=== PATIENT | female | born 1990 | race Caucasian/White ===

== ENCOUNTER 2017-02-25 01:35 | Inpatient (IN) | payer BC ==
[2017-02-25] MEDS ORDERED: Sodium Chloride 0.9% 10 ML Syringe FLUSH PRN (08:15)
[2017-02-25] MEDS ORDERED: Oxytocin/Lactated Ringers 10 UNIT/1,000 ML BAG IV SCH (08:30)
[2017-02-25] MEDS: Lactated Ringers 1,000 ML IV SCH ×3 (08:47→14:58)
[2017-02-25] MEDS: Oxytocin/Lactated Ringers 10 UNIT/1,000 ML BAG IV SCH ×2 (08:48→22:34)
[2017-02-25] MEDS ORDERED: ePHEDrine 50 MG/ML SDV IVPUSH PRN (09:07)
[2017-02-25] MEDS ORDERED: Ondansetron 4 MG/2 ML SDV IVPUSH PRN (09:07)
[2017-02-25] MEDS ORDERED: fentaNYL 100 MCG/2 ML SDV EPIDUR PRN (09:07)
--- NOTE | 2017-02-25 09:14 | PCM.PREANE ---
Preanesthetic Assessment - Physical Assessment Respiratory Rate: 16 Vital Signs: Last Vital Signs Temp 36.4 C 02/25/17 08:15 Pulse 117 H 02/25/17 08:15 Resp 16 02/25/17 08:15 BP 114/72 02/25/17 08:15 Pulse Ox Height: 1.65 m Weight: 64.41 kg - Allergies Allergies/Adverse Reactions: Allergies Allergy/AdvReac Type Severity Reaction Status Date / Time No Known Allergies Allergy Verified 11/22/15 16:35 PreAnesthesia Questionnaire HEENT History: Reports: Impaired vision Other HEENT History: wear glasses Gastrointestinal History: Reports: Other (see below) Other Gastrointestinal History: umbilical cyst removal 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 [No Known Home Meds] 11/22/15 [History] - CURRENT (IN HOUSE) MEDS Current Meds: Current Medications Ephedrine Sulfate (Ephedrine Sulfate) 5 mg IVPUSH ASDIRECTED PRN PRN Reason: Hypotension Fentanyl (Sublimaze) 100 mcg EPIDUR Q3H PRN PRN Reason: Pain Fentanyl/Bupivacaine HCl (Fentanyl/Bupivacaine/Ns 2 Mcg-0.125% 100 Ml) 100 ml EPIDUR ASDIRECTED HEATHER Lactated Ringer's (Ringers, Lactated) 1,000 mls @ 40 mls/hr IV ASDIRECTED HEATHER Last Admin: 02/25/17 08:47 Dose: 1,254 mls/hr Oxytocin/Lactated Ringer's (Pitocin In Lr 10 Units/1,000 Ml) 10 unit in 1,000 mls @ 12 mls/hr IV TITRATE HEATHER; 2 MUNITS/MIN PRN Reason: Protocol Last Titration: 02/25/17 09:00 Dose: 3 munits/min, 18 mls/hr Oxytocin/Lactated Ringer's (Pitocin In Lr 10 Units/1,000 Ml) 10 unit in 1,000 mls @ 500 mls/hr IV ASDIRECTED HEATHER Ondansetron HCl (Zofran) 4 mg IVPUSH ONETIME PRN PRN Reason: Nausea/Vomiting Sodium Chloride (Saline Flush) 10 ml FLUSH ASDIRECTED PRN PRN Reason: Keep Vein Open Preanesthetic Assessment - ANESTHESIA/TRANSFUSION/FAMILY HX Anesthesia/Transfusion History: No Prior Transfusion(s), Prior Anesthesia Type of Anesthesia Reaction: Denies: Allergy, Anesthesia Awareness, Excessive Somnolence, Excessive Nausea/Vomiting, Excessive Itching, Excessive Shivering, Malignant Hyperthermia, Malignant Hyperthermia, Family History, Pseudocholinesterase Deficiency, Pseudocholinesterase Deficiency, Family History of, Urinary Retention, Unknown, Other (see below) Family History of Anesthesia Reaction: No Intubation History: Unknown - REVIEW OF SYSTEMS Constitutional: Reports: no symptoms 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 Respiratory: Reports: no symptoms Cardiovascular: Reports: no symptoms GI: Reports: no symptoms (GERD with ) Other: Reports: None, Easy Bruising - PHYSICAL ASSESSMENT HR: 117 O2 Sat by Pulse Oximetry: 99 RR: 16 BP: 114/72 Temp: 2.4 C Vital Signs: Last Vital Signs Temp 36.4 C 02/25/17 08:15 Pulse 117 H 02/25/17 08:15 Resp 16 02/25/17 08:15 BP 114/72 02/25/17 08:15 Pulse Ox Height: 1.65 m Weight: 64.41 kg NPO Status Date: 02/25/17 NPO Status Time: 06:00 ASA Class: 2 Mental Status: Alert & Oriented x3 Airway Class: Mallampati = 2 Dentition: Reports: Normal Dentition, Caries Thyro-Mental Finger Breadths: 3 Mouth Opening Finger Breadths: 3 ROM/Head Extension: Full Respiratory Status: lungs clear to auscultation bilaterally Cardiovascular Status: regular rate & rhythm, normal S1, S2, no murmur, blood pressure WNL - ALLERGIES Allergies/Adverse Reactions: Allergies Allergy/AdvReac Type Severity Reaction Status Date / Time No Known Allergies Allergy Verified 11/22/15 16:35 - ANESTHESIA PLAN Preop Beta Ethan: No Anesthesia Type Planned: Epidural - ACKNOWLEDGEMENTS Pt an Appropriate Candidate for the Planned Anesthesia: Yes Alternatives and Risks of Anesthesia Discussed w Pt/Guardian: Yes Pt/Guardian Understands and Agrees with Anesthesia Plan: Yes
--- NOTE | 2017-02-25 13:19 | PCM.LDHP ---
L&D History of Present Illness - General Date of Service: 02/25/17 Admit Problem/Dx: Patient Status Order with Admit Dx/Problem 02/25/17 08:19 Admission Status [Patient Status] [ADT] Routine Admission Diagnosis/Problem Admission Diagnosis/Problem 02/25/17 12:53 Intrauterine at 39-4/7 weeks gestation for induction of labor. Source of Information: Patient History Limitations: Reports: No limitations - History of Present Illness Introduction:: History of Present Illness: Audra is a 26-year-old 1 para 0 female who presents to L&D for induction of labor. AJ is 02/28/17 based on early ultrasound done on . The patient reports good activity. She is not in any pain and appears to be comfortable. She denies bleeding. course: The patient had routine care throughout . She had some problems with RUQ pain, which was worked up and found to be benign. She did have some mild, consistent contractions one week ago, however, they subsided. She also had a few vaginal infections that were promptly treated as well. Otherwise, fundal height has measured appropriately and the patient has done well. 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 LMP 05/20/16. The patient was not taking control at the time of conception. Menses prior to are regular - every 28-29 days - and of normal amount and duration. Menarche occurred at age 13. No history of sexually transmitted infections. Last pap smear 08/05/17 - within normal limits. Blood type B negative, antibody negative. Rubella immune. VDRL/RPR nonreactive. HBsAg negative. HIV negative. Chlamydia and gonorhea negative. Serum quad screen was completed and was within normal limits. Group B Strep negative. Tdap and Rhogam given. Past Medical History: Noncontributory. Medications: - Vitamin D3, 2000 IU - Iron, 325 mg Allergies: - Ceclor, gets rash - Lactose intolerant Past Surgical History: - Geronimo tooth extraction Family History: - Mother - alive and well - Father - , unknown cause - Brother - alive, history of depression - MGM - , liver failure secondary to EtOH abuse - MGF - , lung cancer - PGM - , diabetes mellitus - PGF - , old age, diabetes mellitu No family history of bleeding or clotting disorders, or problems with anesthesia Social history: The patient lives in [place] with her significant other. She denies tobacco use, history of illicit/recreational drug use, and use of alcohol. Review of Systems: General: No weakness, fatigue. Skin: No skin or nail changes. No rashes or lesions. HEENT: No headaches, blurry vision, ear pain, sore throat. Breasts: Slight tenderness, related to . Cardiac: No history of murmurs or palpitations. Respiratory: No shortness of breath, wheezing, productive cough. GI: Good appetite. No nausea/vomiting. : Increased frequency. No hematuria. Musculoskeletal: No peripheral edema or swelling. Physical Exam: General: the patient is a pleasant, well-groomed, female who appears to be in no acute distress. Vitals: BP 114/72, pulse 117, respirations 16, oxygen saturations 99% Skin: No scars, rashes, lesions. HEENT: Normocephalic, atraumatic. PERRLA. No rhinorrhea or discharge. Mucosa pink and moist. Cardiac: Regular rate and rhythm, without murmur. Respiratory: Lungs clear to auscultation bilaterally. Abdomen: Gravid uterus, soft, non-tender. Appropriate for gestational age. : Normal. Cervix: 2 cm/90%/0/very soft/mid Musculoskeletal: No edema/swelling. - Related Data Allergies/Adverse Reactions: Allergies Allergy/AdvReac Type Severity Reaction Status Date / Time No Known Allergies Allergy Verified 11/22/15 16:35 Home Medications: Home Meds Ergocalciferol (Vitamin D2) [Vitamin D] 400 unit PO DAILY 02/25/17 [History] Iron,Carbonyl/Vit C/Vit B12/Fa [Iron 100 Plus Tablet] 1 each PO DAILY 02/25/17 [ History] Vit W-Ca,Fe,FA(<1 mg) [ Vitamins] 1 each PO DAILY 02/25/17 [ History] Past Medical History HEENT History: Reports: Impaired vision Other HEENT History: wear glasses Gastrointestinal History: Reports: Other (see below) Other Gastrointestinal History: umbilical cyst removal 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: - Past Surgical History HEENT Surgical History: Reports: Other (see below) Other HEENT Surgeries/Procedures: wisdom teeth removal Social & Family History - Family History Family Medical History: Noncontributory - Tobacco Use Smoking Status *Q: Never Smoker - Recreational Drug Use Recreational Drug Use: No H&P Review of Systems - Review of Systems: Review Of Systems: See Below L&D Exam - Exam Exam: See Below - Vital Signs Vital Signs: Last Vital Signs Temp 2.4 C L 02/25/17 09:14 Pulse 117 H 02/25/17 09:14 Resp 16 02/25/17 09:14 BP 114/72 02/25/17 09:14 Pulse Ox 99 02/25/17 09:14 Weight: 64.41 kg - Patient Data Lab Results last 24 hrs: Laboratory Results - last 24 hr 02/25/17 02/25/17 Range/Units 09:20 09:20 WBC 11.40 H (3.98-10.04) K/mm3 RBC 4.02 (3.98-5.22) M/mm3 Hgb 12.6 (11.2-15.7) gm/L Hct 36.2 (34.1-44.9) % MCV 90.0 (79.4-94.8) fl MCH 31.3 (25.6-32.2) pg MCHC 34.8 (32.2-35.5) g/dl RDW Std Deviation 45.8 (36.4-46.3) fL Plt Count 234 (182-369) K/mm3 MPV 10.0 (9.4-12.3) fl Neut % (Auto) 74.8 H (34.0-71.1) % Lymph % (Auto) 14.2 L (19.3-51.7) % [place] % (Auto) 9.7 (4.7-12.5) % Eos % (Auto) 0.4 L (0.7-5.8) Baso % (Auto) 0.1 (0.1-1.2) % Neut # (Auto) 8.53 H (1.56-6.13) K/mm3 Lymph # (Auto) 1.62 (1.18-3.74) K/mm3 [place] # (Auto) 1.11 H (0.24-0.36) K/mm3 Eos # (Auto) 0.04 (0.04-0.36) K/mm3 Baso # (Auto) 0.01 (0.01-0.08) K/mm3 Blood Type B NEGATIVE Gel Antibody Screen Negative Result Diagrams: 02/25/17 09:20 Problem List Initiated/Reviewed/Updated: Yes Orders Last 24hrs: Active Orders 24 hr Category Date Time Status Admission Status [Patient Status] [ADT] Routine ADT 02/25/17 08:19 Active Communication Order [RC] ASDIRECTED Care 02/25/17 08:15 Active Notify Provider [RC] ASDIRECTED Care 02/25/17 08:15 Active Notify Provider [RC] ASDIRECTED Care 02/25/17 09:07 Active Oxygen Therapy [RC] ASDIRECTED Care 02/25/17 09:06 Active Peripheral IV Care [RC] . DIRECTED Care 02/25/17 08:15 Active Pulse Oximetry [RC] ASDIRECTED Care 02/25/17 09:06 Active Vital Signs [RC] ASDIRECTED Care 02/25/17 08:15 Active Clear Liquid Diet [DIET] Diet 02/25/17 Breakfast Active Bupivacaine/fentaNYL/NS [fentaNYL/Bupivacaine/NS 2 MCG- Med 02/25/17 09:15 Active 0.125% 100 ML] 100 ml EPIDUR ASDIRECTED Lactated Ringers [Ringers, Lactated] 1,000 ml Med 02/25/17 08:15 Active IV ASDIRECTED Ondansetron [Zofran] Med 02/25/17 09:07 Active 4 mg IVPUSH ONETIME PRN Oxytocin/Lactated Ringers [Pitocin in LR 10 Units/1,000 Med 02/25/17 08:30 Active ML] 10 unit in 1,000 ml IV ASDIRECTED Oxytocin/Lactated Ringers [Pitocin in LR 10 Units/1,000 Med 02/25/17 08:15 Active ML] 10 unit in 1,000 ml IV TITRATE Sodium Chloride 0.9% [Saline Flush] Med 02/25/17 08:15 Active 10 ml FLUSH ASDIRECTED PRN ePHEDrine [ePHEDrine Sulfate] Med 02/25/17 09:07 Active 5 mg IVPUSH ASDIRECTED PRN fentaNYL [Sublimaze] Med 02/25/17 09:07 Active 100 mcg EPIDUR Q3H PRN Peripheral IV Insertion Adult [OM.PC] Routine Oth 02/25/17 08:15 Ordered Medication Orders Ephedrine Sulfate (Ephedrine Sulfate) 5 mg IVPUSH ASDIRECTED PRN PRN Reason: Hypotension Fentanyl (Sublimaze) 100 mcg EPIDUR Q3H PRN PRN Reason: Pain Fentanyl/Bupivacaine HCl (Fentanyl/Bupivacaine/Ns 2 Mcg-0.125% 100 Ml) 100 ml EPIDUR ASDIRECTED HEATHER Lactated Ringer's (Ringers, Lactated) 1,000 mls @ 40 mls/hr IV ASDIRECTED HEATHER Last Admin: 02/25/17 08:47 Dose: 1,254 mls/hr Oxytocin/Lactated Ringer's (Pitocin In Lr 10 Units/1,000 Ml) 10 unit in 1,000 mls @ 12 mls/hr IV TITRATE HEATHER; 2 MUNITS/MIN PRN Reason: Protocol Last Titration: 02/25/17 12:47 Dose: 12 munits/min, 72 mls/hr Titration: 02/25/17 10:46 Dose: 10 munits/min, 60 mls/hr Titration: 02/25/17 10:37 Dose: 9 munits/min, 54 mls/hr Titration: 02/25/17 10:14 Dose: 8 munits/min, 48 mls/hr Titration: 02/25/17 09:55 Dose: 7 munits/min, 42 mls/hr Titration: 02/25/17 09:45 Dose: 6 munits/min, 36 mls/hr Titration: 02/25/17 09:30 Dose: 5 munits/min, 30 mls/hr Titration: 02/25/17 09:15 Dose: 4 munits/min, 24 mls/hr Titration: 02/25/17 09:00 Dose: 3 munits/min, 18 mls/hr Admin: 02/25/17 08:48 Dose: 2 munits/min, 12 mls/hr Oxytocin/Lactated Ringer's (Pitocin In Lr 10 Units/1,000 Ml) 10 unit in 1,000 mls @ 500 mls/hr IV ASDIRECTED [facility] Ondansetron HCl (Zofran) 4 mg IVPUSH ONETIME PRN PRN Reason: Nausea/Vomiting Sodium Chloride (Saline Flush) 10 ml FLUSH ASDIRECTED PRN PRN Reason: Keep Vein Open Assessment/Plan Comment:: Assessment: 1. Intrauterine at 38-4/7 for induction of labor 2. Group B strep negative. 3. Plans a natural labor, open to epidural. 4. Plans to nurse. 5. Tdap and Rhogam given during care. Plan: 1. IV Pitocin, increase slowly. 2. Artificial rupture of membranes. 3. Epidural if/when desired. 4. Encourage nusing behavior. 5. Anticipate normal spontaneous vaginal delivery.
[2017-02-25] MEDS: Bupivacaine/fentaNYL/NS 100 ML Bag EPIDUR SCH ×2 (13:43→21:06)
[2017-02-25] MEDS ORDERED: Bupivacaine 0.25% 10 ML SDV ONE (22:22)
--- NOTE | 2017-02-26 01:59 | PCM.SN ---
- Free Text/Narrative Note: Audra is a 26-year-old 1 now para 1 female who was brought in for an induction at 39-5/7 weeks gestation. She was started on IV pitocin and artificial rupture of membranes was performed when she was about 3cm dilated. She slowly progressed to complete and pushed for 3+ hours. At 0135 hours, she delivered a viable 3340 g (7lbs 5.8oz), 20 inches long, Female ("Kathia Hay") over an intact perineum. She did have a superficial, right medial labia minora laceration that stopped bleeding with pressure. No sutures were required. Baby' s apgars were 8 and 9 at 1 and 5 minutes respectively. The placenta was then delivered at 0142 hours in [place] presentation. It was examined and found to be intact. 3-vessel cord was noted. EBL 200cc. Mom and baby are doing well. Patient plans to breast feed.
[2017-02-26] MEDS ORDERED: Docusate Sodium 100 MG Cap PO PRN (02:54)
[2017-02-26] MEDS ORDERED: Benzocaine/Menthol 20%-0.5% Spray 56 GM Canister TOP PRN (02:54)
[2017-02-26] MEDS ORDERED: Lanolin 100% Cream 7 GM Tube TOP PRN (02:54)
[2017-02-26] MEDS ORDERED: Witch Hazel Medicated Pads 100/Jar TOP PRN (02:54)
[2017-02-26] MEDS ORDERED: Acetaminophen 325 MG Tab PO PRN (02:54)
--- NOTE | 2017-02-26 09:13 | PCM48HPAN ---
Post Anesthesia Note - EVALUATION WITHIN 48HRS OF ANESTHETIC Vital Signs in Normal Range: Yes Patient Participated in Evaluation: Yes Respiratory Function Stable: Yes Airway Patent: Yes Cardiovascular Function Stable: Yes Hydration Status Stable: Yes Pain Control Satisfactory: Yes Nausea and Vomiting Control Satisfactory: Yes Mental Status Recovered: Yes
[2017-02-26] MEDS: Ibuprofen 600 MG Tab PO PRN ×2 (12:26→22:48)
[2017-02-27 11:52] VITALS: BP 107/71
--- NOTE | 2017-02-27 12:29 | PCM.DCSUM1 ---
Discharge Summary - Hospital Course Free Text/Narrative:: Audra is a 26-year-old 1 now para 1 female who was brought in for an induction at 39-5/7 weeks gestation. She was started on IV pitocin and artificial rupture of membranes was performed when she was about 3cm dilated. She slowly progressed to complete and pushed for 3+ hours. At 0135 hours, she delivered a viable 3340 g (7lbs 5.8oz), 20 inches long, Female ("Kathia Hay") over an intact perineum. She did have a superficial, right medial labia minora laceration that stopped bleeding with pressure. No sutures were required. Baby' s apgars were 8 and 9 at 1 and 5 minutes respectively. The placenta was then delivered at 0142 hours in [place] presentation. It was examined and found to be intact. 3-vessel cord was noted. EBL 200cc. Mom and baby are doing well. Patient plans to breast feed. PP the patient has done well. She is ambulating well. Lochia is minimal. Nursing without problems. She is ready for discharge. - Discharge Data Discharge Date: 02/27/17 Discharge Disposition: Home, Self-Care 01 Condition: Good - Patient Instructions Diet: Regular Diet as Tolerated (Nursing diet with increased calories and calcium) Activity: As Tolerated (No intercourse or tampons until discharge resolves.) Driving: May Drive Today Showering/Bathing: May Shower (May take a bath) Notify Provider of: Fever, Increased Pain, Swelling and Redness, Nausea and/or Vomiting - Discharge Plan Home Medications: Home Meds Ergocalciferol (Vitamin D2) [Vitamin D] 400 unit PO DAILY 02/25/17 [History] Iron,Carbonyl/Vit C/Vit B12/Fa [Iron 100 Plus Tablet] 1 each PO DAILY 02/25/17 [ History] Vit W-Ca,Fe,FA(<1 mg) [ Vitamins] 1 each PO DAILY 02/25/17 [ History] Ibuprofen [IJD: Ibuprofen] 600 mg PO Q4H PRN #30 tablet 02/27/17 [Rx] Referrals: Long Mcclelland MD [Primary Care Provider] - (RTC-6 weeks-[facility]-Dr. Mcclelland.) - Discharge Summary/Plan Comment DC Time >30 min.: No Discharge Summary/Plan Comment: Discharge Instructions: 1. Discharge Home 2. Regular, high fiber, nursing diet with increased calories and calcium 3. Precautions given concerning increased pain, bleeding, temperature, s/s of DVT/PE. 4. Medication list printed, discussed with and given to the patient 5. [facility] Condition: Good - Patient Data Vitals - Most Recent: Last Vital Signs Temp 37.0 C 02/27/17 11:15 Pulse 87 02/27/17 11:15 Resp 16 02/27/17 11:51 BP 107/71 02/27/17 11:15 Pulse Ox 98 02/27/17 11:15 Weight - Most Recent: 64.41 kg I&O - Last 24 hours: Intake & Output 02/26/17 02/27/17 02/27/17 22:59 06:59 14:59 Intake Total 120 120 Balance 120 120 Lab Results - Last 24 hrs: Laboratory Results - last 24 hr 02/26/17 02/27/17 Range/Units 08:46 05:30 WBC 14.49 H (3.98-10.04) K/mm3 RBC 3.92 L (3.98-5.22) M/mm3 Hgb 12.2 (11.2-15.7) gm/L Hct 35.5 (34.1-44.9) % MCV 90.6 (79.4-94.8) fl MCH 31.1 (25.6-32.2) pg MCHC 34.4 (32.2-35.5) g/dl RDW Std Deviation 46.3 (36.4-46.3) fL Plt Count 219 (182-369) K/mm3 MPV 9.9 (9.4-12.3) fl Blood Type Cancelled Gel Antibody Screen Cancelled Screen 1 ros/5 flds - neg RhIG Candidate? Yes Rhogam Indicated Cancelled Med Orders - Current: Current Medications Acetaminophen (Tylenol) 650 mg PO Q4H PRN PRN Reason: mild pain or fever Benzocaine/Menthol (Dermoplast Pain Relief [place]) 0 gm TOP ASDIRECTED PRN PRN Reason: Perineal Comfort Measure Last Admin: 02/26/17 05:15 Dose: 1 can Docusate Sodium (Colace) 100 mg PO BID PRN PRN Reason: Constipation Emollient Ointment (Lansinoh Hpa) 0 gm TOP ASDIRECTED PRN PRN Reason: Sore Nipples Ibuprofen (Motrin) 600 mg PO Q4H PRN PRN Reason: Mild pain or fever Last Admin: 02/26/17 22:48 Dose: 600 mg Witch Celeste (Tucks) 1 pad TOP ASDIRECTED PRN PRN Reason: Hemorrhoid pain Last Admin: 02/26/17 05:00 Dose: 1 container Discontinued Medications Ephedrine Sulfate (Ephedrine Sulfate) 5 mg IVPUSH ASDIRECTED PRN PRN Reason: Hypotension Fentanyl (Sublimaze) 100 mcg EPIDUR Q3H PRN PRN Reason: Pain Last Admin: 02/25/17 13:44 Dose: 100 mcg Fentanyl/Bupivacaine HCl (Fentanyl/Bupivacaine/Ns 2 Mcg-0.125% 100 Ml) 100 ml EPIDUR ASDIRECTED HEATHER Last Admin: 02/25/17 21:06 Dose: 100 ml Lactated Ringer's (Ringers, Lactated) 1,000 mls @ 40 mls/hr IV ASDIRECTED HEATHER Last Admin: 02/25/17 14:58 Dose: 1,254 mls/hr Oxytocin/Lactated Ringer's (Pitocin In Lr 10 Units/1,000 Ml) 10 unit in 1,000 mls @ 12 mls/hr IV TITRATE HEATHER; 2 MUNITS/MIN PRN Reason: Protocol Last Admin: 02/25/17 22:34 Dose: 15 munits/min, 90 mls/hr Oxytocin/Lactated Ringer's (Pitocin In Lr 10 Units/1,000 Ml) 10 unit in 1,000 mls @ 500 mls/hr IV ASDIRECTED HEATHER Ondansetron HCl (Zofran) 4 mg IVPUSH ONETIME PRN PRN Reason: Nausea/Vomiting Sodium Chloride (Saline Flush) 10 ml FLUSH ASDIRECTED PRN PRN Reason: Keep Vein Open *Q Meaningful Use (DIS) - VTE *Q VTE Criteria *Q: - Stroke *Q Stroke Criteria *Q: - AMI *Q AMI Criteria *Q:
== END 2017-02-27 13:30 | disposition home or self-care (01) | DRG 560 ==
LOC: JD.OB 01:35 → EDSTATUS 11:19 → JD.OB 02-26 01:35 → OBSVTOIN 02-26 01:35
PROVIDERS: ADMIT Obstetrics & Gynecology; ATTEND Obstetrics & Gynecology
PROC: 10E0XZZ Delivery of Products of Conception, External Approach (ICD-10-PCS; principal; 2017-02-26)
PROC: 3E033VJ Introduction of Other Hormone into Peripheral Vein, Percutaneous Approach (ICD-10-PCS; 2017-02-26)
PROC: 10907ZC Drainage of Amniotic Fluid, Therapeutic from Products of Conception, Via Natural or Artificial Opening (ICD-10-PCS; 2017-02-26)
DX: O80 Encounter for full-term uncomplicated delivery (principal); Z3A.40 40 weeks gestation of pregnancy; Z37.0 Single live birth; Z91.011 Allergy to milk products; Z88.8 Allergy status to other drugs, medicaments and biological substances
CPT/HCPCS: 36415; 85025; 85027; 85461; 86850; 86900; 86901; A9270-GY; J2590; J2790; J3010; J7120

== ENCOUNTER 2017-07-27 06:46 | Emergency (ER) | payer BC ==
--- NOTE | 2017-07-27 07:05 | EDM.PDOC ---
ED HPI GENERAL MEDICAL PROBLEM - General Chief Complaint: Genitourinary Problem Stated Complaint: BLOOD IN URINE Time Seen by Provider: 07/27/17 07:05 Source of Information: Reports: Patient History Limitations: Reports: No Limitations - History of Present Illness INITIAL COMMENTS - FREE TEXT/NARRATIVE: 27-year-old female presents to the ED with acute hemorrhagic cystitis. She presents with grossly bloody urine. She reports she awoke around 0100 hrs. this morning with dysuria urgency and frequency. The initial voiding was not bloody but the last 3 have been very bloody. Still has a strong sense of urgency to void. Has had previous bladder infections but not for a lengthy period of time. She is currently 5 months . She is breast-feeding. She is allergic to Ceclor. She has no backache she does have some chills right at the time of voiding. Suprapubic pressure discomfort. 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 (see below) (None.) Lower Abdomen Pain Score (Numeric/FACES): 7 - Related Data Allergies Allergy/AdvReac Type Severity Reaction Status Date / Time cefaclor [From Ceclor] Allergy Cannot Verified 07/27/17 07:01 Remember Home Meds: Home Meds Vit W-Ca,Fe,FA(<1 mg) [ Vitamins] 1 each PO DAILY 02/25/17 [ History] Sulfamethoxazole/Trimethoprim [Bactrim Ds Tablet] 1 each PO BID #16 tablet 07/27 [Rx] Vit D3/Folic Acid/B2/B6/B12 [Folgard Tablet] 2,000 units PO DAILY 07/27/17 [ History] Past Medical History HEENT History: Reports: Impaired Vision Other HEENT History: wear glasses Gastrointestinal History: Reports: Other (See Below) Other Gastrointestinal History: umbilical cyst removal Genitourinary History: Reports: Other (See Below) (Has had occasional urinary tract infections.) 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 Denies: Fever, Chills, Malaise, Weakness, Weight Loss (From being up all night.) HEENT: Reports: No Symptoms Respiratory: Reports: No Symptoms Cardiovascular: Reports: No Symptoms Endocrine: Reports: No Symptoms GI/Abdominal: Reports: Abdominal Pain (Suprapubic pressure discomfort.) : Reports: Dysuria, Frequency, Hematuria, Urgency Musculoskeletal: Reports: No Symptoms Skin: Reports: No Symptoms Neurological: Reports: No Symptoms Psychiatric: Reports: No Symptoms Hematologic/Lymphatic: Reports: No Symptoms Immunologic: Reports: No Symptoms ED EXAM, RENAL/ - Physical Exam Exam: See Below Exam Limited By: No Limitations General Appearance: Alert, WD/WN, No Apparent Distress Respiratory/Chest: No Respiratory Distress, Lungs Clear, Normal Breath Sounds, Respiratory Distress (Mild tachypnea at rest. O2 sats 100% on room air. Mildly anxious.) Cardiovascular: Normal Peripheral Pulses, Regular Rate, Rhythm, No Edema, No Murmur GI/Abdominal: Normal Bowel Sounds, Soft, Non-Tender, No Organomegaly Extremities: Normal Inspection, Normal Range of Motion, Non-Tender, No Pedal Edema, Normal Capillary Refill Neurological: Alert, Oriented, CN II-XII Intact, Normal Cognition, Normal Gait Psychiatric: Normal Affect, Normal Mood Skin Exam: Warm, Dry, Intact, Normal Color, No Rash Course - Vital Signs Last Recorded V/S: Last Vital Signs Temp 35.8 C 07/27/17 06:55 Pulse 70 07/27/17 06:55 Resp 20 07/27/17 06:55 BP 117/80 07/27/17 06:55 Pulse Ox 100 07/27/17 06:55 - Orders/Labs/Meds Orders: Active Orders 24 hr Category Date Time Status CULTURE URINE [RM] Stat Lab 07/27/17 07:07 Ordered Labs: Laboratory Tests 07/27/17 07/27/17 Range/Units 07:07 07:07 Urine Color Red H (Yellow) Urine Appearance Turbid H (Clear) Urine pH 5.5 (5.0-8.0) Ur Specific [place] 1.025 (1.005-1.030) Urine Protein 3+ H (Negative) Urine Glucose (UA) Negative (Negative) Urine Ketones 1+ H (Negative) Urine Occult Blood 3+ H (Negative) Urine Nitrite Positive H (Negative) Urine Bilirubin 3+ H (Negative) Urine Urobilinogen 4.0 H (0.2-1.0) Ur Leukocyte Esterase 3+ H (Negative) Urine RBC Too numerous to cnt H (0-5) /hpf Urine WBC 0-5 (0-5) /hpf Ur Epithelial Cells 0-5 (0-5) /hpf Urine Bacteria Moderate H (FEW) /hpf Urine Mucus Not seen (FEW) /hpf Urine HCG, Qual Negative (NEGATIVE) Meds: Medications Discontinued Medications Generic Name Dose Route Start Last Admin Trade Name Freq PRN Reason Stop Dose Admin Phenazopyridine HCl 95 mg 07/27/17 07:36 07/27/17 07:43 Urinary Pain Relief PO 07/27/17 07:37 95 mg ONETIME ONE Administration Trimethoprim/Sulfamethoxazole 1 tab 07/27/17 07:36 07/27/17 07:43 Septra Ds PO 07/27/17 07:37 1 tab ONETIME ONE Administration - Radiology Interpretation Free Text/Narrative:: 27-year-old female presents the ED with her and 5-month-old baby. She presents with acute onset of dysuria urgency and frequency about 0100 hrs. this morning. Over the last 3 voids it is turned to grossly bloody urine. ie. hemarrhagic cystitis. No signs of systemic illness. Plan : Urinalysis and urine for culture and urine test. Bactrim double strength twice a day for the next 8 days. Given initial dose of Bactrim in the ED with Pyridium 95 mg as well. Departure - Departure Time of Disposition: 07:51 Disposition: Home, Self-Care 01 Condition: Fair Clinical Impression: Acute hemorrhagic cystitis - Discharge Information Prescriptions: Sulfamethoxazole/Trimethoprim [Bactrim Ds Tablet] 1 each PO BID #16 tablet Referrals: Long Mcclelland MD [Primary Care Provider] - Forms: ED Department Discharge Additional Instructions: Evaluation the emergency room this morning in regards to acute onset of progressive urinary tract infection. Bloody urine is secondary to significant infection" involving the wall of the urinary bladder causing it to bleed. Plenty of fluids today. Urinalysis confirmed an infective process. Treatment is Bactrim double strength 1 tablet twice daily for the next 8 days . First tablet was provided in the emergency department this morning next tablet would be due at suppertime. Expect marked improvement in symptoms of urgency dysuria and frequency over the next 12-18 hours. It is safe to breast-feed with current antibiotic therapy. - My Orders Last 24 Hours: My Active Orders 07/27/17 07:07 CULTURE URINE [RM] Stat - Assessment/Plan Last 24 Hours: My Active Orders 07/27/17 07:07 CULTURE URINE [RM] Stat
[2017-07-27] MEDS ORDERED: Sulfamethoxazole/Trimethoprim 800-160 MG Tab PO ONE (07:36)
[2017-07-27] MEDS ORDERED: Phenazopyridine 95 MG Tab PO ONE (07:36)
[2017-07-27 08:48] VITALS: BP 115/68
== END 2017-07-27 08:05 | disposition home or self-care (01) ==
LOC: JD.ED 06:46
DX: N30.00 Acute cystitis without hematuria (principal); Z98.890 Other specified postprocedural states; Z88.1 Allergy status to other antibiotic agents
CPT/HCPCS: 81001; 81025; 87086; 99284; A9270; 87088; 87186; 99283

== ENCOUNTER 2019-03-18 03:04 | Emergency (ER) | payer BC, OTHER ==
[2019-03-18 03:19] VITALS: BP 106/61
--- NOTE | 2019-03-18 04:47 | EDM.PDOC ---
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 This started about 2:00 this morning she developed some left mid to lower back discomfort and some left lower abdominal discomfort. She has not had any spotting or contractions. She is a 2 para 1 now at 7 weeks gestation. She is scheduled to see her OB for initial OB check this coming week on Tuesday. Patient has not had any burning or frequency with urination. Her last was uncomplicated.. She has not had any fevers or chills no nausea or vomiting. Left Lower Abdomen Pain Score (Numeric/FACES): 8 - Related Data Allergies Allergy/AdvReac Type Severity Reaction Status Date / Time cefaclor [From Ceclor] Allergy Cannot Verified 07/27/17 07:01 Remember Home Meds: Home Meds Vit Calc,Iron,Folic [ Vitamins] 1 each PO DAILY 02/25/17 [ History] Sulfamethoxazole/Trimethoprim [Bactrim Ds Tablet] 1 each PO BID #16 tablet 07/27 [Rx] Vit D3/Folic Acid/B2/B6/B12 [Folgard Tablet] 2,000 units PO DAILY 07/27/17 [ History] Past Medical History HEENT History: Reports: Impaired Vision Other HEENT History: wear glasses Gastrointestinal History: Reports: Other (See Below) Other Gastrointestinal History: umbilical cyst removal Genitourinary History: Reports: Other (See Below) 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: - Infectious Disease History Infectious Disease History: Reports: Chicken Pox - Past Surgical History HEENT Surgical History: Reports: Other (See Below) Social & Family History - Family History Family Medical History: Noncontributory - Tobacco Use Smoking Status *Q: Never Smoker - Caffeine Use Caffeine Use: Reports: None - Recreational Drug Use Recreational Drug Use: No - Living Situation & Occupation Living situation: Reports: Occupation: Unemployed ED ROS GENERAL - Review of Systems Review Of Systems: See Below Constitutional: Reports: No Symptoms Respiratory: Reports: No Symptoms Cardiovascular: Reports: No Symptoms Endocrine: Reports: No Symptoms GI/Abdominal: Reports: No Symptoms : Denies: Dysuria, Flank Pain Musculoskeletal: Reports: Back Pain Skin: Reports: No Symptoms Neurological: Reports: No Symptoms ED EXAM - Physical Exam Exam: See Below Exam Limited By: No Limitations General Appearance: Alert, No Apparent Distress Head: Atraumatic, Normocephalic Neck: Normal Inspection, Supple, Non-Tender, Full Range of Motion Respiratory/Chest: No Respiratory Distress, Lungs Clear, Normal Breath Sounds Cardiovascular: Regular Rate, Rhythm, No Edema, No Murmur GI/Abdominal Exam: Normal Bowel Sounds, Soft, Other (She has some vague left lower quadrant discomfort no suprapubic discomfort no rigidity rebound or guarding) (Female) Exam: Other (She is not spotting or bleeding pelvic exam is deferred ) Back Exam: Normal Inspection, Muscle Spasm (He has a area of muscle spasm in the left upper lumbar region extending into the lower thoracic area this seems to be fairly consistent with the discomfort she's having.). No: CVA Tenderness (L), CVA Tenderness (R) Neurological: Alert, Oriented, Normal Cognition Course - Vital Signs Last Recorded V/S: Last Vital Signs Temp 36.4 C 03/18/19 03:16 Pulse 66 03/18/19 03:16 Resp 20 03/18/19 03:16 BP 106/61 03/18/19 03:16 Pulse Ox 100 03/18/19 03:16 - Orders/Labs/Meds Labs: Laboratory Tests 03/18/19 Range/Units 03:33 Urine Color Yellow (Yellow) Urine Appearance Clear (Clear) Urine pH 7.5 (5.0-8.0) Ur Specific [place] 1.015 (1.005-1.030) Urine Protein Negative (Negative) Urine Glucose (UA) Negative (Negative) Urine Ketones Negative (Negative) Urine Occult Blood Negative (Negative) Urine Nitrite Negative (Negative) Urine Bilirubin Negative (Negative) Urine Urobilinogen 0.2 (0.2-1.0) Ur Leukocyte Esterase Negative (Negative) Urine RBC 0-5 (0-5) /hpf Urine WBC Not seen (0-5) /hpf Ur Epithelial Cells 0-5 (0-5) /hpf Urine Bacteria Rare (FEW) /hpf Urine Mucus Rare (FEW) /hpf - Re-Assessments/Exams Free Text/Narrative Re-Assessment/Exam: 03/18/19 05:30 Patient has no evidence of UTI on her urinalysis quantitative hCG is 107,000. Because of her discomfort is not clearly identified could be an early miscarriage versus back strain and I have discussed this with her Departure - Departure Time of Disposition: 05:32 Disposition: Home, Self-Care 01 Condition: Good Clinical Impression: Low back strain, Threatened - Discharge Information Referrals: Lnog Mcclelland MD [Primary Care Provider] - Forms: ED Department Discharge Additional Instructions: Return to the emergency room with any questions problems worsening symptoms. Return with heavy vaginal bleeding or any other concerns. You may use Tylenol as directed. Follow-up with Dr. Mcclelland is scheduled.
== END 2019-03-18 05:42 | disposition home or self-care (01) ==
LOC: JD.ED 03:04
DX: O20.0 Threatened abortion (principal); O99.89 Other specified diseases and conditions complicating pregnancy, childbirth and the puerperium; S39.012A Strain of muscle, fascia and tendon of lower back, initial encounter; Z79.899 Other long term (current) drug therapy; Z3A.01 Less than 8 weeks gestation of pregnancy; X58.XXXA Exposure to other specified factors, initial encounter
CPT/HCPCS: 36415; 81001; 84702; 85025; 86850; 86900; 86901; 99282; 99284

== ENCOUNTER 2019-10-16 03:12 | Inpatient (IN) | payer OTHER ==
[2019-10-16] MEDS ORDERED: Sodium Chloride 0.9% 10 ML Syringe FLUSH PRN (14:48)
[2019-10-16] MEDS ORDERED: Ondansetron 4 MG/2 ML SDV IVPUSH PRN (14:48)
[2019-10-16] MEDS ORDERED: Nalbuphine 10 MG/1 ML Vial IVPUSH PRN (14:48)
[2019-10-16] MEDS ORDERED: Oxytocin/Lactated Ringers 10 UNIT/1,000 ML BAG IV SCH ×2 (15:00)
[2019-10-16] MEDS: Lactated Ringers 1,000 ML IV SCH ×3 (16:40→18:41)
[2019-10-16] MEDS ORDERED: diphenhydrAMINE 50 MG/ML SDV IVPUSH PRN (17:18)
[2019-10-16] MEDS ORDERED: fentaNYL 100 MCG/2 ML SDV EPIDUR PRN (17:18)
[2019-10-16] MEDS ORDERED: fentaNYL/Bupivacaine/NS 2 MCG-0.125% 250 ML EPIDUR PRN (17:18)
[2019-10-16] MEDS ORDERED: ePHEDrine 50 MG/ML SDV IVPUSH PRN (17:18)
--- NOTE | 2019-10-16 17:52 | PCM.PREANE ---
Preanesthetic Assessment - Procedure Proposed Procedure: Epidural - Anesthesia/Transfusion/Family Hx Anesthesia History: Prior Anesthesia Without Reaction Family History of Anesthesia Reaction: No Transfusion History: No Prior Transfusion(s) - Review of Systems General: Fatigue Pulmonary: No Symptoms Cardiovascular: No Symptoms Gastrointestinal: Abdominal Pain (labor) Neurological: No Symptoms Other: Reports: None - Physical Assessment Vital Signs: Last Vital Signs Temp 36.2 C 10/16/19 14:48 Pulse Resp 14 10/16/19 14:48 BP 128/78 10/16/19 14:48 Pulse Ox 97 10/16/19 14:48 Height: 1.68 m Weight: 79.651 kg ASA Class: 2 Mental Status: Alert & Oriented x3 Airway Class: Mallampati = 1 Dentition: Reports: Normal Dentition Thyro-Mental Finger Breadths: 3 Mouth Opening Finger Breadths: 3 ROM/Head Extension: Full Lungs: Clear to Auscultation, Normal Respiratory Effort Cardiovascular: Regular Rate, Regular Rhythm - Lab Values: Laboratory Last Values WBC 13.26 K/mm3 (3.98-10.04) H 10/16/19 15:00 RBC 4.53 M/mm3 (3.98-5.22) 10/16/19 15:00 Hgb 13.1 gm/dl (11.2-15.7) 10/16/19 15:00 Hct 38.2 % (34.1-44.9) 10/16/19 15:00 MCV 84.3 fl (79.4-94.8) D 10/16/19 15:00 MCH 28.9 pg (25.6-32.2) 10/16/19 15:00 MCHC 34.3 g/dl (32.2-35.5) 10/16/19 15:00 RDW Std Deviation 42.6 fL (36.4-46.3) 10/16/19 15:00 Plt Count 263 K/mm3 (182-369) 10/16/19 15:00 MPV 9.6 fl (9.4-12.3) 10/16/19 15:00 Neut % (Auto) 74.0 % (34.0-71.1) H 10/16/19 15:00 Lymph % (Auto) 15.6 % (19.3-51.7) L 10/16/19 15:00 [place] % (Auto) 8.7 % (4.7-12.5) 10/16/19 15:00 Eos % (Auto) 0.5 (0.7-5.8) L 10/16/19 15:00 Baso % (Auto) 0.2 % (0.1-1.2) 10/16/19 15:00 Neut # (Auto) 9.82 K/mm3 (1.56-6.13) H 10/16/19 15:00 Lymph # (Auto) 2.07 K/mm3 (1.18-3.74) 10/16/19 15:00 [place] # (Auto) 1.15 K/mm3 (0.24-0.36) H 10/16/19 15:00 Eos # (Auto) 0.07 K/mm3 (0.04-0.36) 10/16/19 15:00 Baso # (Auto) 0.02 K/mm3 (0.01-0.08) 10/16/19 15:00 Manual Slide Review Normal smear 10/16/19 15:00 RPR Non-reactive (NONREACTIVE) 10/16/19 15:00 - Allergies Allergies/Adverse Reactions: Allergies Allergy/AdvReac Type Severity Reaction Status Date / Time cefaclor [From [facility]] Allergy Cannot Verified 10/16/19 15:32 Remember - Anesthesia Plan Pre-Op Medication Ordered: None - Acknowledgements Anesthesia Type Planned: Epidural Pt an Appropriate Candidate for the Planned Anesthesia: Yes Alternatives and Risks of Anesthesia Discussed w Pt/Guardian: Yes Pt/Guardian Understands and Agrees with Anesthesia Plan: Yes PreAnesthesia Questionnaire HEENT History: Reports: Impaired Vision Other HEENT History: wear glasses Gastrointestinal History: Reports: GERD, Other (See Below) Other Gastrointestinal History: umbilical cyst removal Genitourinary History: Reports: Other (See Below) 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: - Infectious Disease History Infectious Disease History: Reports: Chicken Pox - Past Surgical History HEENT Surgical History: Reports: Oral Surgery - SUBSTANCE USE Smoking Status *Q: Never Smoker Second Hand Smoke Exposure: No Recreational Drug Use History: No - HOME MEDS Home Medications: Home Meds Vit Calc,Iron,Folic [ Vitamins] 1 each PO DAILY 02/25/17 [ History] - CURRENT (IN HOUSE) MEDS Current Meds: Current Medications Diphenhydramine HCl (Benadryl) 25 mg IVPUSH Q6H PRN PRN Reason: Itching Ephedrine Sulfate (Ephedrine Sulfate) 5 mg IVPUSH ASDIRECTED PRN PRN Reason: HYPOTENTSION Fentanyl (Sublimaze) 100 mcg EPIDUR Q3H PRN PRN Reason: Pain Last Admin: 10/16/19 17:32 Dose: 100 mcg Fentanyl/Bupivacaine HCl (Fentanyl/Bupivacaine/Ns 2 Mcg-0.125% 250 Ml) 0 ml EPIDUR CONTINUOUS PRN PRN Reason: Pain Last Admin: 10/16/19 17:32 Dose: 250 ml Lactated Ringer's (Ringers, Lactated) 1,000 mls @ 100 mls/hr IV ASDIRECTED HEATHER Last Admin: 10/16/19 16:40 Dose: 999 mls/hr Oxytocin/Lactated Ringer's (Pitocin In Lr 10 Units/1,000 Ml) 10 unit in 1,000 mls @ 12 mls/hr IV TITRATE HEATHER; Protocol Oxytocin/Lactated Ringer's (Pitocin In Lr 10 Units/1,000 Ml) 10 unit in 1,000 mls @ 500 mls/hr IV .CONTINUOUS HEATHER Nalbuphine HCl (Nubain) 10 mg IVPUSH Q2H PRN PRN Reason: Pain Ondansetron HCl (Zofran) 4 mg IVPUSH Q4H PRN PRN Reason: Nausea/Vomiting Sodium Chloride (Saline Flush) 10 ml FLUSH ASDIRECTED PRN PRN Reason: Keep Vein Open
--- NOTE | 2019-10-16 18:57 | PCM.LDHP ---
<Roshni Carranza - Last Filed: 10/16/19 18:26> L&D History of Present Illness - General Date of Service: 10/16/19 Admit Problem/Dx: Patient Status Order with Admit Dx/Problem 10/16/19 14:48 Patient Status [ADT] Routine Admission Diagnosis/Problem Admission Diagnosis/Problem 10/16/19 18:27 38 weeks intrauterine , vertex presentation Source of Information: Patient History Limitations: Reports: No Limitations - History of Present Illness Introduction:: HPI: Audra is a 29 year old female who was admitted for progress of labor. She was seen in clinic yesterday, where her membranes were stripped. She states that today she has had more intense, regular contractions, at times occurring every 8-10 minutes. When checked in clinic today, her cervix was 3cm dialted, increased from 2cm yesterday, and the monitor showed consistent contractions, at which point she was admitted to labor and delivery. Her AJ is 10/30/2019 based upon a last menstrual period 01/23/2019, and an ultrasound completed on 03/27. 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 The patient's first visit was 03/27/2019. She has had regular care throughout the . Her pre- weight was 143score was le. [place] depression (a pre- BMI of 23.2), and her weight today is 174.8, equating to a weight gain of 34.4 lbs. She is 5 feet 6 inches tall. course was relatively unremarkable. EDPS score was 0 on 06/11/2019. Group B strep was negative. lab testing in : -first trimester: blood type B negative, with a negative antibody screen. First hemoglobin 14.7g/dl. Platelets were 265,000. Rubella immune, RPR nonreactive, urine culture was negative, hepatitis B surface antigen negative, HIV negative, chlamydia and gonorrhea negative. -second trimester lab: hemoglobin 12.0g/dl, platelets 206,000, 1 hour glucose of 96. -third trimester: group B negative Past obstetric history: - female infant born on 02/26/2016 at 39-5 weeks gestational age after 10 hours of labor. 7lbs 5oz infant named Rukhsana Hay. Born via normal spontaneous vaginal delivery. Past medical history - normal spontaneous vaginal delivery X1 Past surgical history - wisdom tooth extraction in 2008 Family history - Mom alive and well; dad , Male cancer. One brother alive with history of depression- on medication. MGM- , liver/ETOH abuse, lung cancer- smoker, PGM- -DM, PGF- , old age and DM, issues with anesthesia , bleeding, clotting, or . Social history: -The patient is to Mary Strauss. 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 She does not use any significant amount of alcohol, drugs, or tobacco. Current medications - omega 3 (1000 mg oral capsule 1po daily) - vitamin D3 (50 MCG oral capsule daily) - tabs (one daily) allergies: -ceclor CAPS- rash -Lactose ROS: GENERAL: feels well outside of cramping, pelvic pressure, and hip pain SKIN: negative HEENT: negative CV: no chest pain RESPIRATORY: no shortness of breath or cough BREASTS: changes associated with including increased size and tenderness GI: negative : changes associated with and labor EXTREMITIES: negative, occasional edema NEURO: negative PHYSICAL EXAM: GENERAL: well developed, well nourished, female at term VITAL SIGNS: blood pressure at last clinic evaluation (today) was 106/60 SKIN: warm and dry, no visible rashes or lesions HEENT: win normal limits LUNGS: clear to auscultation in all lung blakely CV: regular rate and rhythm, no rubs, clicks, or gallops BREASTS: deferred ABDOMEN: protuberant- fundal height 39.5. Baby in vertex position on exam, cervix at time of presentation was 3cm dilated, 90% effaced, 0 station, and posterior. EXTREMITIES: no significant edema NEURO: grossly within normal limits Assessment: 1. 38 week intrauterine , in vertex presentation 2. group B strep negative 3. influenza vaccine given [id number] 4. Tdap given [id number] 5. RPR nonreactive and MMR shows immunity Plan: 1. Rupture membranes 2. augment labor with pitocin per protocol 3. 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: Reports: - Infectious Disease History Infectious Disease History: Reports: Chicken Pox - Past Surgical History HEENT Surgical History: Reports: Oral Surgery Social & Family History - Family History Family Medical History: Noncontributory - Tobacco Use Smoking Status *Q: Never Smoker Second Hand Smoke Exposure: No - Caffeine Use Caffeine Use: Reports: None - Recreational Drug Use Recreational Drug Use: No - Living Situation & Occupation Living situation: Reports: Occupation: Unemployed L&D Exam - Vital Signs Vital Signs: Last Vital Signs Temp 36.2 C 10/16/19 14:48 Pulse Resp 14 10/16/19 14:48 BP 128/78 10/16/19 14:48 Pulse Ox 97 10/16/19 14:48 Weight: 79.651 kg - Patient Data Lab Results Last 24 hrs: Laboratory Results - last 24 hr 10/16/19 10/16/19 Range/Units 15:00 15:00 WBC 13.26 H (3.98-10.04) K/mm3 RBC 4.53 (3.98-5.22) M/mm3 Hgb 13.1 (11.2-15.7) gm/dl Hct 38.2 (34.1-44.9) % MCV 84.3 D (79.4-94.8) fl MCH 28.9 (25.6-32.2) pg MCHC 34.3 (32.2-35.5) g/dl RDW Std Deviation 42.6 (36.4-46.3) fL Plt Count 263 (182-369) K/mm3 MPV 9.6 (9.4-12.3) fl Neut % (Auto) 74.0 H (34.0-71.1) % Lymph % (Auto) 15.6 L (19.3-51.7) % Mineral % (Auto) 8.7 (4.7-12.5) % Eos % (Auto) 0.5 L (0.7-5.8) Baso % (Auto) 0.2 (0.1-1.2) % Neut # (Auto) 9.82 H (1.56-6.13) K/mm3 Lymph # (Auto) 2.07 (1.18-3.74) K/mm3 Mineral # (Auto) 1.15 H (0.24-0.36) K/mm3 Eos # (Auto) 0.07 (0.04-0.36) K/mm3 Baso # (Auto) 0.02 (0.01-0.08) K/mm3 Manual Slide Review Normal smear RPR Non-reactive (NONREACTIVE) Result Diagrams: 10/16/19 15:00 Orders Last 24hrs: Active Orders 24 hr Category Date Time Status Patient Status [ADT] Routine ADT 10/16/19 14:48 Active Activity as Tolerated [RC] PFP Care 10/16/19 14:48 Active Communication Order [RC] ASDIRECTED Care 10/16/19 14:48 Active Communication Order [RC] ASDIRECTED Care 10/16/19 17:18 Active Cooling Warming Measures [RC] ASDIRECTED Care 10/16/19 17:18 Active Heart Tones [RC] ASDIRECTED Care 10/16/19 14:49 Active Non Stress Test [RC] PER UNIT ROUTINE Care 10/16/19 14:48 Active Notify Provider [RC] ASDIRECTED Care 10/16/19 17:18 Active Notify Provider [RC] PFP Care 10/16/19 14:48 Active Notify Provider [RC] PRN Care 10/16/19 14:48 Active Oxygen Therapy [RC] ASDIRECTED Care 10/16/19 17:18 Active Peripheral IV Care [RC] . DIRECTED Care 10/16/19 14:49 Active Pulse Oximetry [RC] ASDIRECTED Care 10/16/19 17:18 Active Vital Signs [RC] PER UNIT ROUTINE Care 10/16/19 14:48 Active Vital Signs [RC] Q1H Care 10/16/19 17:18 Active Regular Diet [DIET] Diet 10/16/19 Dinner Active BLOOD BANK HOLD SPECIMEN [BBK] Stat Lab 10/16/19 15:00 Received Bupivicaine/fentaNYL/NS [fentaNYL/Bupivacaine/NS 2 MCG- Med 10/16/19 17:18 Active 0.125% 250 ML] 0 ml EPIDUR CONTINUOUS PRN Lactated Ringers [Ringers, Lactated] 1,000 ml Med 10/16/19 15:00 Active IV ASDIRECTED Nalbuphine [Nubain] Med 10/16/19 14:48 Active 10 mg IVPUSH Q2H PRN Ondansetron [Zofran] Med 10/16/19 14:48 Active 4 mg IVPUSH Q4H PRN Oxytocin/Lactated Ringers [Pitocin in LR 10 Units/1,000 Med 10/16/19 15:00 Active ML] 10 unit in 1,000 ml IV .CONTINUOUS Oxytocin/Lactated Ringers [Pitocin in LR 10 Units/1,000 Med 10/16/19 15:00 Active ML] 10 unit in 1,000 ml IV TITRATE Sodium Chloride 0.9% [Saline Flush] Med 10/16/19 14:48 Active 10 ml FLUSH ASDIRECTED PRN diphenhydrAMINE [Benadryl] Med 10/16/19 17:18 Active 25 mg IVPUSH Q6H PRN ePHEDrine [ePHEDrine sulfate] Med 10/16/19 17:18 Active 5 mg IVPUSH ASDIRECTED PRN fentaNYL [Sublimaze] Med 10/16/19 17:18 Active 100 mcg EPIDUR Q3H PRN Electronic Heart Tones Ext w TOCO [WOMSER] Oth 10/16/19 14:48 Ordered Routine Electronic Heart Tones Internal [WOMSER] Per Unit Oth 10/16/19 14:48 Ordered Routine Peripheral IV Insertion Adult [OM.PC] Routine Oth 10/16/19 14:48 Ordered Resuscitation Status Routine Resus Stat 10/16/19 14:48 Ordered Medication Orders Diphenhydramine HCl (Benadryl) 25 mg IVPUSH Q6H PRN PRN Reason: Itching Ephedrine Sulfate (Ephedrine Sulfate) 5 mg IVPUSH ASDIRECTED PRN PRN Reason: HYPOTENTSION Fentanyl (Sublimaze) 100 mcg EPIDUR Q3H PRN PRN Reason: Pain Last Admin: 10/16/19 17:32 Dose: 100 mcg Fentanyl/Bupivacaine HCl (Fentanyl/Bupivacaine/Ns 2 Mcg-0.125% 250 Ml) 0 ml EPIDUR CONTINUOUS PRN PRN Reason: Pain Last Admin: 10/16/19 17:32 Dose: 250 ml Lactated Ringer's (Ringers, Lactated) 1,000 mls @ 100 mls/hr IV ASDIRECTED HEATHER Last Admin: 10/16/19 16:40 Dose: 999 mls/hr Oxytocin/Lactated Ringer's (Pitocin In Lr 10 Units/1,000 Ml) 10 unit in 1,000 mls @ 12 mls/hr IV TITRATE HEATHER; Protocol Oxytocin/Lactated Ringer's (Pitocin In Lr 10 Units/1,000 Ml) 10 unit in 1,000 mls @ 500 mls/hr IV .CONTINUOUS HEATHER Nalbuphine HCl (Nubain) 10 mg IVPUSH Q2H PRN PRN Reason: Pain Ondansetron HCl (Zofran) 4 mg IVPUSH Q4H PRN PRN Reason: Nausea/Vomiting Sodium Chloride (Saline Flush) 10 ml FLUSH ASDIRECTED PRN PRN Reason: Keep Vein Open <Long Mcclelland F - Last Filed: 10/17/19 00:12> L&D History of Present Illness - General Admit Problem/Dx: Patient Status Order with Admit Dx/Problem 10/16/19 14:48 Patient Status [ADT] Routine Admission Diagnosis/Problem Admission Diagnosis/Problem H&P Review of Systems - Review of Systems: Review Of Systems: See Below L&D Exam - Exam Exam: See Below - Vital Signs Vital Signs: Last Vital Signs Temp 36.2 C 10/16/19 14:48 Pulse Resp 14 10/16/19 14:48 BP 128/78 10/16/19 14:48 Pulse Ox 97 10/16/19 14:48 - Patient Data Lab Results Last 24 hrs: Laboratory Results - last 24 hr 10/16/19 10/16/19 Range/Units 15:00 15:00 WBC 13.26 H (3.98-10.04) K/mm3 RBC 4.53 (3.98-5.22) M/mm3 Hgb 13.1 (11.2-15.7) gm/dl Hct 38.2 (34.1-44.9) % MCV 84.3 D (79.4-94.8) fl MCH 28.9 (25.6-32.2) pg MCHC 34.3 (32.2-35.5) g/dl RDW Std Deviation 42.6 (36.4-46.3) fL Plt Count 263 (182-369) K/mm3 MPV 9.6 (9.4-12.3) fl Neut % (Auto) 74.0 H (34.0-71.1) % Lymph % (Auto) 15.6 L (19.3-51.7) % Mineral % (Auto) 8.7 (4.7-12.5) % Eos % (Auto) 0.5 L (0.7-5.8) Baso % (Auto) 0.2 (0.1-1.2) % Neut # (Auto) 9.82 H (1.56-6.13) K/mm3 Lymph # (Auto) 2.07 (1.18-3.74) K/mm3 Mineral # (Auto) 1.15 H (0.24-0.36) K/mm3 Eos # (Auto) 0.07 (0.04-0.36) K/mm3 Baso # (Auto) 0.02 (0.01-0.08) K/mm3 Manual Slide Review Normal smear RPR Non-reactive (NONREACTIVE) Result Diagrams: 10/16/19 15:00 Problem List Initiated/Reviewed/Updated: Yes Orders Last 24hrs: Active Orders 24 hr Category Date Time Status Patient Status [ADT] Routine ADT 10/16/19 14:48 Active Activity as Tolerated [RC] PFP Care 10/16/19 14:48 Active Communication Order [RC] ASDIRECTED Care 10/16/19 14:48 Active Communication Order [RC] ASDIRECTED Care 10/16/19 17:18 Active Notify Provider [RC] ASDIRECTED Care 10/16/19 17:18 Active Notify Provider [RC] PFP Care 10/16/19 14:48 Active Notify Provider [RC] PRN Care 10/16/19 14:48 Active Peripheral IV Care [RC] Q2HR Care 10/16/19 14:49 Active Regular Diet [DIET] Diet 10/16/19 Dinner Active BLOOD BANK HOLD SPECIMEN [BBK] Stat Lab 10/16/19 15:00 Received Bupivicaine/fentaNYL/NS [fentaNYL/Bupivacaine/NS 2 MCG- Med 10/16/19 17:18 Active 0.125% 250 ML] 0 ml EPIDUR CONTINUOUS PRN Lactated Ringers [Ringers, Lactated] 1,000 ml Med 10/16/19 15:00 Active IV ASDIRECTED Nalbuphine [Nubain] Med 10/16/19 14:48 Active 10 mg IVPUSH Q2H PRN Ondansetron [Zofran] Med 10/16/19 14:48 Active 4 mg IVPUSH Q4H PRN Oxytocin/Lactated Ringers [Pitocin in LR 10 Units/1,000 Med 10/16/19 15:00 Active ML] 10 unit in 1,000 ml IV .CONTINUOUS Oxytocin/Lactated Ringers [Pitocin in LR 10 Units/1,000 Med 10/16/19 15:00 Active ML] 10 unit in 1,000 ml IV TITRATE Sodium Chloride 0.9% [Saline Flush] Med 10/16/19 14:48 Active 10 ml FLUSH ASDIRECTED PRN diphenhydrAMINE [Benadryl] Med 10/16/19 17:18 Active 25 mg IVPUSH Q6H PRN ePHEDrine [ePHEDrine sulfate] Med 10/16/19 17:18 Active 5 mg IVPUSH ASDIRECTED PRN fentaNYL [Sublimaze] Med 10/16/19 17:18 Active 100 mcg EPIDUR Q3H PRN Electronic Heart Tones Ext w TOCO [WOMSER] Oth 10/16/19 14:48 Ordered Routine Electronic Heart Tones Internal [WOMSER] Per Unit Oth 10/16/19 14:48 Ordered Routine Peripheral IV Insertion Adult [OM.PC] Routine Oth 10/16/19 14:48 Ordered Resuscitation Status Routine Resus Stat 10/16/19 14:48 Ordered Medication Orders Diphenhydramine HCl (Benadryl) 25 mg IVPUSH Q6H PRN PRN Reason: Itching Ephedrine Sulfate (Ephedrine Sulfate) 5 mg IVPUSH ASDIRECTED PRN PRN Reason: HYPOTENTSION Fentanyl (Sublimaze) 100 mcg EPIDUR Q3H PRN PRN Reason: Pain Last Admin: 10/16/19 17:32 Dose: 100 mcg Fentanyl/Bupivacaine HCl (Fentanyl/Bupivacaine/Ns 2 Mcg-0.125% 250 Ml) 0 ml EPIDUR CONTINUOUS PRN PRN Reason: Pain Last Admin: 10/16/19 17:32 Dose: 250 ml Lactated Ringer's (Ringers, Lactated) 1,000 mls @ 100 mls/hr IV ASDIRECTED HEATHER Last Admin: 10/16/19 18:41 Dose: 999 mls/hr Infusion: 10/16/19 18:41 Dose: 100 mls/hr Admin: 10/16/19 17:40 Dose: 999 mls/hr Infusion: 10/16/19 17:40 Dose: 999 mls/hr Admin: 10/16/19 16:40 Dose: 999 mls/hr Oxytocin/Lactated Ringer's (Pitocin In Lr 10 Units/1,000 Ml) 10 unit in 1,000 mls @ 12 mls/hr IV TITRATE HEATHER; Protocol Last Admin: 10/16/19 22:08 Dose: 2 munits/min, 12 mls/hr Oxytocin/Lactated Ringer's (Pitocin In Lr 10 Units/1,000 Ml) 10 unit in 1,000 mls @ 500 mls/hr IV .CONTINUOUS HEATHER Nalbuphine HCl (Nubain) 10 mg IVPUSH Q2H PRN PRN Reason: Pain Ondansetron HCl (Zofran) 4 mg IVPUSH Q4H PRN PRN Reason: Nausea/Vomiting Sodium Chloride (Saline Flush) 10 ml FLUSH ASDIRECTED PRN PRN Reason: Keep Vein Open Assessment/Plan Comment:: The history and physical dictated by student is reviewed and I agree with the content.
[2019-10-17] MEDS ORDERED: Bupivacaine 0.25% 10 ML SDV ONE
--- NOTE | 2019-10-17 03:37 | PCM.SN ---
- Free Text/Narrative Note: Audra is a 29-year-old 2 now para 2002 female who is admitted on 2018 at 37 8-1/7 weeks gestational age with an AJ of 10/30/2019 in active labor. She underwent artificial rupture membranes with resultant clear amniotic fluid. She progressed steadily through labor and at approximately 0230 hrs. on 10/17/2019 she became completely dilated. Patient had an epidural for labor analgesia. heart tones were generally reassuring. At 0312 hrs. on 2018 she delivered a viable, scott, male infant with Apgars of 8 and 9, weight of 3270 g (7 pounds 3.3 ounces), a length of 19.5 inches in an occiput anterior position. She delivered over an intact perineum. After delivery the baby was placed on mom's abdomen. Nose and mouth were bulb suctioned. The cord was allowed to pulsate for approximately 3 minutes and was cut by the baby's father Michele. Pitocin was continued but at a rate of 500 mL/h to facilitate increase in uterine tone and reduce likelihood of bleeding. Cord blood was obtained. The umbilical cord had 3 vessels. The placenta delivered in a [place] visitation, appeared intact and complete and was discarded per patient desire. Estimated blood loss was approximately 100 mL. Patient plans to breast-feed. Condition: Good
[2019-10-17] MEDS ORDERED: Benzocaine/Menthol 20%-0.5% Spray 56 GM Canister TOP PRN (06:22)
[2019-10-17] MEDS ORDERED: Docusate Sodium 100 MG Cap PO PRN (06:22)
[2019-10-17] MEDS ORDERED: Witch Hazel Medicated Pads 40/Jar TOP PRN (06:22)
--- NOTE | 2019-10-17 07:20 | PCM48HPAN ---
Post Anesthesia Note - EVALUATION WITHIN 48HRS OF ANESTHETIC Vital Signs in Normal Range: Yes Patient Participated in Evaluation: Yes Respiratory Function Stable: Yes Airway Patent: Yes Cardiovascular Function Stable: Yes Hydration Status Stable: Yes Pain Control Satisfactory: Yes Nausea and Vomiting Control Satisfactory: Yes Mental Status Recovered: Yes Vital Signs: Last Vital Signs Temp 97.2 F 10/16/19 14:48 Pulse Resp 14 10/16/19 14:48 BP 128/78 10/16/19 14:48 Pulse Ox 97 10/16/19 14:48
--- NOTE | 2019-10-17 08:25 | PCM.PN ---
<Roshni Carranza - Last Filed: 10/17/19 08:18> - General Info Date of Service: 10/17/19 Admission Dx/Problem (Free Text): Patient Status Order with Admit Dx/Problem 10/16/19 14:48 Patient Status [ADT] Routine Admission Diagnosis/Problem Admission Diagnosis/Problem Subjective Update: The patient reports reasonable pain control. She is still experiencing some pelvic pain and cramping, as well as some right hip and leg pain. She has been able to urinate since the time of delivery, and reports mild discomfort with urination, but states it is "nothing unmanageable". She is the infant, and reports that this seems to be going well. No swollen or tender limbs , no difficulty breathing, and no new headaches or light headedness. Functional Status: Reports: Pain Controlled (reports mild pelvic, back, and right leg pain), Ambulating, Urinating - Review of Systems General: Reports: No Symptoms HEENT: Reports: No Symptoms (denies headache or visual changes) Pulmonary: Reports: No Symptoms Cardiovascular: Reports: No Symptoms Gastrointestinal: Reports: No Symptoms (abdominal pain secondary to continued, intermittent uterine cramping ) Genitourinary: Reports: Pain (mild discomfort with urination ) Musculoskeletal: Reports: Back Pain (from epidural and in hip area- denies radiation, numbness, or limb swelling) Skin: Reports: No Symptoms Neurological: Reports: No Symptoms - Patient Data Vitals - Most Recent: Last Vital Signs Temp 36.2 C 10/16/19 14:48 Pulse Resp 14 10/16/19 14:48 BP 128/78 10/16/19 14:48 Pulse Ox 97 10/16/19 14:48 Weight - Most Recent: 79.651 kg Lab Results Last 24 Hours: Laboratory Results - last 24 hr 10/16/19 10/16/19 Range/Units 15:00 15:00 WBC 13.26 H (3.98-10.04) K/mm3 RBC 4.53 (3.98-5.22) M/mm3 Hgb 13.1 (11.2-15.7) gm/dl Hct 38.2 (34.1-44.9) % MCV 84.3 D (79.4-94.8) fl MCH 28.9 (25.6-32.2) pg MCHC 34.3 (32.2-35.5) g/dl RDW Std Deviation 42.6 (36.4-46.3) fL Plt Count 263 (182-369) K/mm3 MPV 9.6 (9.4-12.3) fl Neut % (Auto) 74.0 H (34.0-71.1) % Lymph % (Auto) 15.6 L (19.3-51.7) % [place] % (Auto) 8.7 (4.7-12.5) % Eos % (Auto) 0.5 L (0.7-5.8) Baso % (Auto) 0.2 (0.1-1.2) % Neut # (Auto) 9.82 H (1.56-6.13) K/mm3 Lymph # (Auto) 2.07 (1.18-3.74) K/mm3 [place] # (Auto) 1.15 H (0.24-0.36) K/mm3 Eos # (Auto) 0.07 (0.04-0.36) K/mm3 Baso # (Auto) 0.02 (0.01-0.08) K/mm3 Manual Slide Review Normal smear RPR Non-reactive (NONREACTIVE) Med Orders - Current: Current Medications Acetaminophen (Tylenol) 650 mg PO Q4H PRN PRN Reason: mild pain or fever Benzocaine/Menthol (Dermoplast Pain Relief [place]) 0 gm TOP ASDIRECTED PRN PRN Reason: Perineal Comfort Measure Docusate Sodium (Colace) 100 mg PO BID PRN PRN Reason: Constipation Ibuprofen (Motrin) 600 mg PO Q4H PRN PRN Reason: Mild pain or fever Witch Celeste (Tucks) 1 pad TOP ASDIRECTED PRN PRN Reason: Pain Discontinued Medications Diphenhydramine HCl (Benadryl) 25 mg IVPUSH Q6H PRN PRN Reason: Itching Ephedrine Sulfate (Ephedrine Sulfate) 5 mg IVPUSH ASDIRECTED PRN PRN Reason: HYPOTENTSION Fentanyl (Sublimaze) 100 mcg EPIDUR Q3H PRN PRN Reason: Pain Last Admin: 10/16/19 17:32 Dose: 100 mcg Fentanyl/Bupivacaine HCl (Fentanyl/Bupivacaine/Ns 2 Mcg-0.125% 250 Ml) 0 ml EPIDUR CONTINUOUS PRN PRN Reason: Pain Last Admin: 10/16/19 17:32 Dose: 250 ml Lactated Ringer's (Ringers, Lactated) 1,000 mls @ 100 mls/hr IV ASDIRECTED HEATHER Last Admin: 10/16/19 18:41 Dose: 999 mls/hr Oxytocin/Lactated Ringer's (Pitocin In Lr 10 Units/1,000 Ml) 10 unit in 1,000 mls @ 12 mls/hr IV TITRATE HEATHER; Protocol Last Titration: 10/16/19 23:30 Dose: 4 munits/min, 24 mls/hr Oxytocin/Lactated Ringer's (Pitocin In Lr 10 Units/1,000 Ml) 10 unit in 1,000 mls @ 500 mls/hr IV .CONTINUOUS HEATHER Last Admin: 10/17/19 05:44 Dose: 500 mls/hr Nalbuphine HCl (Nubain) 10 mg IVPUSH Q2H PRN PRN Reason: Pain Ondansetron HCl (Zofran) 4 mg IVPUSH Q4H PRN PRN Reason: Nausea/Vomiting Sodium Chloride (Saline Flush) 10 ml FLUSH ASDIRECTED PRN PRN Reason: Keep Vein Open - Exam General: Alert, Oriented, Cooperative, No Acute Distress HEENT: EOMI, Mucous Membr. Moist/[place]: Supple Lungs: Clear to Auscultation, Normal Respiratory Effort Cardiovascular: Regular Rate, Regular Rhythm, No Murmurs GI/Abdominal Exam: Normal Bowel Sounds, Soft (uterine fundus palpated just below the level of the umbilicus ) Extremities: Normal Inspection, No Pedal Edema, Leg Pain (some right hip/leg pain following epidural ) Peripheral Pulses: 2+: Radial (L), Radial (R), Posterior Tibial (L), Posterior Tibial (R) Skin: Warm, Dry, Intact Neurological: No New Focal Deficit, Normal Speech, Normal Tone Psy/Mental Status: Alert, Normal Affect, Normal Mood - Plan Plan:: 1. control pain associated with vaginal delivery 2. monitor bleeding, cramping, and uterine tone 3. encourage , which the patient has chosen <Long Mcclelland - Last Filed: 10/18/19 01:33> - Patient Data Vitals - Most Recent: Last Vital Signs Temp 36.2 C 10/17/19 16:09 Pulse 84 10/17/19 19:54 Resp 15 10/17/19 19:54 BP 100/65 10/17/19 19:54 Pulse Ox 99 10/17/19 19:54 I&O - Last 24 Hours: Intake & Output 10/17/19 10/17/19 10/18/19 14:59 22:59 06:59 Intake Total 120 Balance 120 Med Orders - Current: Current Medications Benzocaine/Menthol (Dermoplast Pain Relief [place]) 0 gm TOP ASDIRECTED PRN PRN Reason: Perineal Comfort Measure Docusate Sodium (Colace) 100 mg PO BID PRN PRN Reason: Constipation Last Admin: 10/17/19 17:46 Dose: 100 mg Ibuprofen (Motrin) 600 mg PO Q4H PRN PRN Reason: Mild pain or fever Last Admin: 10/17/19 20:16 Dose: 600 mg Oxycodone/Acetaminophen (Percocet 325-5 Mg) 1 tab PO Q4H PRN PRN Reason: Pain (moderate 4-6) Witch [place]este (Tucks) 1 pad TOP ASDIRECTED PRN PRN Reason: Pain Discontinued Medications Acetaminophen (Tylenol) 650 mg PO Q4H PRN PRN Reason: mild pain or fever Last Admin: 10/17/19 16:16 Dose: 650 mg Bupivacaine HCl (Sensorcaine-Mpf 0.25%) 10 ml .ROUTE .STK-MED ONE Stop: 10/17/19 00:01 Diphenhydramine HCl (Benadryl) 25 mg IVPUSH Q6H PRN PRN Reason: Itching Ephedrine Sulfate (Ephedrine Sulfate) 5 mg IVPUSH ASDIRECTED PRN PRN Reason: HYPOTENTSION Fentanyl (Sublimaze) 100 mcg EPIDUR Q3H PRN PRN Reason: Pain Last Admin: 10/16/19 17:32 Dose: 100 mcg Fentanyl/Bupivacaine HCl (Fentanyl/Bupivacaine/Ns 2 Mcg-0.125% 250 Ml) 0 ml EPIDUR CONTINUOUS PRN PRN Reason: Pain Last Admin: 10/16/19 17:32 Dose: 250 ml Lactated Ringer's (Ringers, Lactated) 1,000 mls @ 100 mls/hr IV ASDIRECTED HEATHER Last Admin: 10/16/19 18:41 Dose: 999 mls/hr Oxytocin/Lactated Ringer's (Pitocin In Lr 10 Units/1,000 Ml) 10 unit in 1,000 mls @ 12 mls/hr IV TITRATE HEATHER; Protocol Last Titration: 10/16/19 23:30 Dose: 4 munits/min, 24 mls/hr Oxytocin/Lactated Ringer's (Pitocin In Lr 10 Units/1,000 Ml) 10 unit in 1,000 mls @ 500 mls/hr IV .CONTINUOUS HEATHER Last Admin: 10/17/19 05:44 Dose: 500 mls/hr Nalbuphine HCl (Nubain) 10 mg IVPUSH Q2H PRN PRN Reason: Pain Ondansetron HCl (Zofran) 4 mg IVPUSH Q4H PRN PRN Reason: Nausea/Vomiting Sodium Chloride (Saline Flush) 10 ml FLUSH ASDIRECTED PRN PRN Reason: Keep Vein Open - Problem List Review Problem List Initiated/Reviewed/Updated: Yes - My Orders Last 24 Hours: My Active Orders 10/17/19 06:22 Activity as Tolerated [RC] PER UNIT ROUTINE Vital Signs [RC] 03,09,15,21 Benzocaine/Menthol [Dermoplast Pain Relief [place]] See Dose Instructions TOP ASDIRECTED PRN Docusate Sodium [Colace] 100 mg PO BID PRN Ibuprofen [Motrin] 600 mg PO Q4H PRN [place] [Tucks] 1 pad TOP ASDIRECTED PRN Assess Lochia [WOMSER] Per Unit Routine Assess Uterine Involution [WOMSER] Per Unit Routine Breast Pump [WOMSER] Per Unit Routine Heat Therapy [OM.PC] PRN Ice Therapy [OM.PC] Per Unit Routine Medication Administration Instruction [OM.PC] Routine Perineal Care [OM.PC] Per Unit Routine Sitz Bath [OM.PC] Per Unit Routine 10/17/19 20:00 Acetaminophen/oxyCODONE [Percocet 325-5 MG] 1 tab PO Q4H PRN 10/17/19 Breakfast Regular Diet [DIET] 10/18/19 06:22 Heat Therapy [OM.PC] PRN - Plan Plan:: Agree with Student's assessment and plan.
[2019-10-17] MEDS: Ibuprofen 600 MG Tab PO PRN ×2 (10:23→20:16)
[2019-10-17] MEDS: Acetaminophen 325 MG Tab PO PRN ×2 (11:35→16:16)
[2019-10-17] MEDS ORDERED: Acetaminophen/oxyCODONE 325-5 MG Tab PO PRN (20:00)
[2019-10-18 04:33] VITALS: PULSE 81
--- NOTE | 2019-10-18 10:24 | PCM.DCSUM1 ---
Discharge Summary - Hospital Course Free Text/Narrative:: [facility] Provider Simple Note Patient Name: LUIS A FLORES Date of : 89 Patient Status: Inpatient Attending Provider: Long Mcclelland Date: 10/17/19 03:33 Initialization Date: 10/17/19 03:33 - Free Text/Narrative Note: Luis A is a 29-year-old 2 now para 2002 female who is admitted on 2018 at 37 8-1/7 weeks gestational age with an AJ of 10/30/2019 in active labor. She underwent artificial rupture membranes with resultant clear amniotic fluid. She progressed steadily through labor and at approximately 0230 hrs. on 10/17/2019 she became completely dilated. Patient had an epidural for labor analgesia. heart tones were generally reassuring. At 0312 hrs. on 2018 she delivered a viable, scott, male with Apgars of 8 and 9, weight of 3270 g (7 pounds 3.3 ounces), a length of 19.5 inches in an occiput anterior position. She delivered over an intact perineum. After delivery the baby was placed on mom's abdomen. Nose and mouth were bulb suctioned. The cord was allowed to pulsate for approximately 3 minutes and was cut by the baby's father Michele. Pitocin was continued but at a rate of 500 mL/h to facilitate increase in uterine tone and reduce likelihood of bleeding. Cord blood was obtained. The umbilical cord had 3 vessels. The placenta delivered in a [place] visitation, appeared intact and complete and was discarded per patient desire. Estimated blood loss was approximately 100 mL. Patient plans to breast-feed. Condition: Good HPI Initial Comments: [facility] Provider Simple Note Patient Name: LUIS A FLORES Date of : 89 Patient Status: Inpatient Attending Provider: Long Mcclelland Date: 10/17/19 03:33 Initialization Date: 10/17/19 03:33 - Free Text/Narrative Note: Luis A is a 29-year-old 2 now para 2002 female who is admitted on 2018 at 37 8-1/7 weeks gestational age with an AJ of 10/30/2019 in active labor. She underwent artificial rupture membranes with resultant clear amniotic fluid. She progressed steadily through labor and at approximately 0230 hrs. on 10/17/2019 she became completely dilated. Patient had an epidural for labor analgesia. heart tones were generally reassuring. At 0312 hrs. on 2018 she delivered a viable, scott, male infant with Apgars of 8 and 9, weight of 3270 g (7 pounds 3.3 ounces), a length of 19.5 inches in an occiput anterior position. She delivered over an intact perineum. After delivery the baby was placed on mom's abdomen. Nose and mouth were bulb suctioned. The cord was allowed to pulsate for approximately 3 minutes and was cut by the baby's father Michele. Pitocin was continued but at a rate of 500 mL/h to facilitate increase in uterine tone and reduce likelihood of bleeding. Cord blood was obtained. The umbilical cord had 3 vessels. The placenta delivered in a [place] visitation, appeared intact and complete and was discarded per patient desire. Estimated blood loss was approximately 100 mL. Patient plans to breast-feed. Condition: Good Brief History: [facility] . Provider Simple Note. [facility]: [id number] Date of : Patient Status: Inpatient. Attending Provider: Long Mcclelland FAccount Number: [id number]. Date: 10/17/19 03:33Initialization Date: 10/17/19 03:33. - Free Text/Narrative. Note: Luis A is a 29-year-old 2 now para 2002 female who is admitted on 10/17/2019 at 37 8-1/7 weeks gestational age with an AJ of 10/30/2019 in active labor. She underwent artificial rupture membranes with resultant clear amniotic fluid. She progressed steadily through labor and at approximately 0230 hrs. on 10/17/2019 she became completely dilated. Patient had an epidural for labor analgesia. heart tones were generally reassuring. At 0312 hrs. on 10/17/2019 she delivered a viable, scott, male infant with Apgars of 8 and 9, weight of 3270 g (7 pounds 3.3 ounces), a length of 19.5 inches in an occiput anterior position. She delivered over an intact perineum. After delivery the baby was placed on mom's abdomen. Nose and mouth were bulb suctioned. The cord was allowed to pulsate for approximately 3 minutes and was cut by the baby's father Michele. Pitocin was continued but at a rate of 500 mL/h to facilitate increase in uterine tone and reduce likelihood of bleeding. Cord blood was obtained. The umbilical cord had 3 vessels. The placenta delivered in a [place] visitation, appeared intact and complete and was discarded per patient desire. Estimated blood loss was approximately 100 mL. Patient plans to breast-feed. Condition: Good Diagnosis: Stroke: No - Discharge Data Discharge Date: 10/18/19 Discharge Disposition: Home, Self-Care 01 Condition: Good - Referral to Home Health Primary Care Physician: PCP None - Discharge Diagnosis/Problem(s) (1) 38 weeks gestation of SNOMED Code(s): 34355619 ICD Code: Z3A.38 - 38 WEEKS GESTATION OF Status: Acute Current Visit: Yes (2) Vaginal delivery SNOMED Code(s): 952778633 ICD Code: O80 - ENCOUNTER FOR FULL-TERM UNCOMPLICATED DELIVERY Status: Acute Current Visit: Yes - Patient Summary/Data Complications: None Consults: None Hospital Course: Uneventful - Patient Instructions Diet: Usual Diet as Tolerated Driving: Do Not Drive (x4 weeks) Showering/Bathing: May Shower Notify Provider of: Fever, Increased Pain, Swelling and Redness, Drainage, Nausea and/or Vomiting - Discharge Plan *PRESCRIPTION DRUG MONITORING PROGRAM REVIEWED*: Not Applicable *COPY OF PRESCRIPTION DRUG MONITORING REPORT IN PATIENT YONAS: Not Applicable Home Medications: Home Meds Vit Calc,Iron,Folic [ Vitamins] 1 each PO DAILY 02/25/17 [ History] Benzocaine/Menthol [Dermoplast Pain Relief [place]] 1 spray TOP ASDIRECTED PRN canister 10/18/19 [Rx] Ibuprofen [Motrin] 600 mg PO Q6H PRN tablet 10/18/19 [Rx] Witch Celeste [Tucks] 1 pad TOP ASDIRECTED PRN pad 10/18/19 [Rx] Referrals: Long Mcclelland MD [Physician] - (3 weeks) - Discharge Summary/Plan Comment DC Time >30 min.: No - Patient Data Vitals - Most Recent: Last Vital Signs Temp 96.4 F 10/18/19 08:24 Pulse 81 10/18/19 08:24 Resp 18 10/18/19 08:24 BP 119/74 10/18/19 08:24 Pulse Ox 100 10/18/19 08:24 Weight - Most Recent: 175 lb 9.6 oz Med Orders - Current: Current Medications Benzocaine/Menthol (Dermoplast Pain Relief [place]) 0 gm TOP ASDIRECTED PRN PRN Reason: Perineal Comfort Measure Docusate Sodium (Colace) 100 mg PO BID PRN PRN Reason: Constipation Last Admin: 10/17/19 17:46 Dose: 100 mg Ibuprofen (Motrin) 600 mg PO Q4H PRN PRN Reason: Mild pain or fever Last Admin: 10/17/19 20:16 Dose: 600 mg Oxycodone/Acetaminophen (Percocet 325-5 Mg) 1 tab PO Q4H PRN PRN Reason: Pain (moderate 4-6) Last Admin: 10/18/19 08:21 Dose: 1 tab Witch [place] (Tucks) 1 pad TOP ASDIRECTED PRN PRN Reason: Pain Discontinued Medications Acetaminophen (Tylenol) 650 mg PO Q4H PRN PRN Reason: mild pain or fever Last Admin: 10/17/19 16:16 Dose: 650 mg Bupivacaine HCl (Sensorcaine-Mpf 0.25%) 10 ml .ROUTE .STK-MED ONE Stop: 10/17/19 00:01 Diphenhydramine HCl (Benadryl) 25 mg IVPUSH Q6H PRN PRN Reason: Itching Ephedrine Sulfate (Ephedrine Sulfate) 5 mg IVPUSH ASDIRECTED PRN PRN Reason: HYPOTENTSION Fentanyl (Sublimaze) 100 mcg EPIDUR Q3H PRN PRN Reason: Pain Last Admin: 10/16/19 17:32 Dose: 100 mcg Fentanyl/Bupivacaine HCl (Fentanyl/Bupivacaine/Ns 2 Mcg-0.125% 250 Ml) 0 ml EPIDUR CONTINUOUS PRN PRN Reason: Pain Last Admin: 10/16/19 17:32 Dose: 250 ml Lactated Ringer's (Ringers, Lactated) 1,000 mls @ 100 mls/hr IV ASDIRECTED HEATHER Last Admin: 10/16/19 18:41 Dose: 999 mls/hr Oxytocin/Lactated Ringer's (Pitocin In Lr 10 Units/1,000 Ml) 10 unit in 1,000 mls @ 12 mls/hr IV TITRATE HEATHER; Protocol Last Titration: 10/16/19 23:30 Dose: 4 munits/min, 24 mls/hr Oxytocin/Lactated Ringer's (Pitocin In Lr 10 Units/1,000 Ml) 10 unit in 1,000 mls @ 500 mls/hr IV .CONTINUOUS HEATHER Last Admin: 10/17/19 05:44 Dose: 500 mls/hr Nalbuphine HCl (Nubain) 10 mg IVPUSH Q2H PRN PRN Reason: Pain Ondansetron HCl (Zofran) 4 mg IVPUSH Q4H PRN PRN Reason: Nausea/Vomiting Sodium Chloride (Saline Flush) 10 ml FLUSH ASDIRECTED PRN PRN Reason: Keep Vein Open
[2019-10-18] MEDS: Ibuprofen 600 MG Tab PO PRN (16:46)
[2019-10-18 16:53] VITALS: BP 121/76
== END 2019-10-18 16:54 | disposition home or self-care (01) | DRG 807 ==
LOC: JD.OB 03:12 → OBSVTOIN 10-17 03:12
PROVIDERS: ADMIT Obstetrics & Gynecology; ATTEND Obstetrics & Gynecology
PROC: 10E0XZZ Delivery of Products of Conception, External Approach (ICD-10-PCS; principal; 2019-10-17)
PROC: 10907ZC Drainage of Amniotic Fluid, Therapeutic from Products of Conception, Via Natural or Artificial Opening (ICD-10-PCS; 2019-10-17)
DX: O69.81X0 Labor and delivery complicated by cord around neck, without compression, not applicable or unspecified (principal); Z37.0 Single live birth; O77.0 Labor and delivery complicated by meconium in amniotic fluid; Z3A.38 38 weeks gestation of pregnancy
CPT/HCPCS: 36415; 51702; 59025; 59409; 85025; 86592; A9270-GY; J2590; J3010; J3490; J7120